=== PATIENT | female | born 1960 | race African-American/Black ===

== ENCOUNTER 2017-07-26 13:43 | Emergency (ER) | payer OTHER ==
--- NOTE | 2017-07-26 14:40 | ER Document Report ---
ED General - General Chief Complaint: Nose Bleed Stated Complaint: NOSE BLEED Time Seen by Provider: 07/26/17 14:31 Notes: 57-year-old female here with complaints of nosebleed that started prior to arrival. She blew her nose and then it started bleeding for approximately 1 hour on both sides. She has a long-standing history of nosebleeds once monthly for many years. She has never gone to see an ENT physician about this. After the 1 hour bleeding today, she started to have some slight lightheadedness. She denies any chest pain shortness of breath. TRAVEL OUTSIDE OF THE [place] IN LAST 30 DAYS: No - Related Data Allergies/Adverse Reactions: No Known Allergies Allergy (Verified 07/26/17 13:45) Past Medical History - Social History Smoking Status: Former Smoker Chew tobacco use (# tins/day): No Frequency of alcohol use: Occasional Drug Abuse: None Family History: Reviewed & Not Pertinent Patient has suicidal ideation: No Patient has homicidal ideation: No - Past Medical History Cardiac Medical History: Reports: Hx Hypertension - hx of was DC'd off of meds Renal/ Medical History: Denies: Hx Peritoneal Dialysis Past Surgical History: Reports: Hx Hysterectomy Review of Systems - Review of Systems Notes: See history of present illness for pertinent positive review of systems; otherwise all review of systems have been reviewed and are negative Physical Exam - Vital signs Vitals: Temp Pulse Resp BP Pulse Ox 98.5 F 93 16 192/82 H 99 07/26/17 13:58 07/26/17 13:58 07/26/17 13:58 07/26/17 13:58 07/26/17 13:58 - Notes Notes: PHYSICAL EXAMINATION: GENERAL: Well-appearing and in no acute distress. HEAD: Atraumatic, normocephalic. EYES: Pupils equal round and reactive to light, extraocular movements intact, sclera anicteric, conjunctiva are normal. ENT: nares patent however with mildly inflamed bilateral nasal mucosa, no active bleeding, oropharynx clear without exudates. Moist mucous membranes. NECK: Normal range of motion, supple without lymphadenopathy LUNGS: CTAB and equal. No wheezes rales or rhonchi. HEART: Regular rate and rhythm without murmurs ABDOMEN: Soft, no tenderness. No guarding, no rebound EXTREMITIES: Normal range of motion, no pitting edema. No cyanosis. NEUROLOGICAL: Cranial nerves grossly intact. Normal sensory/motor exams. PSYCH: Normal mood, normal affect. SKIN: Warm, Dry, normal turgor, no rashes or lesions noted Course - Re-evaluation Re-evalutation: 07/26/17 14:39 MEDICAL DECISION MAKING: Concern for acute blood loss anemia causing lightheadedness Will check her blood counts and go from there Patient understands and agrees to the plan of care 07/26/17 15:07 Normal blood counts, discussed with patient use of pressure to stop bleeding Also discussed humidifier usage and follow-up PCP - Vital Signs Vital signs: Temp Pulse Resp BP Pulse Ox 98.5 F 93 16 147/86 H 99 07/26/17 13:58 07/26/17 13:58 07/26/17 13:58 07/26/17 14:01 07/26/17 13:58 - Laboratory Result Diagrams: 07/26/17 14:50 Laboratory results interpreted by me: 07/26/17 14:50 RDW 14.3 H Discharge - Discharge Clinical Impression: Epistaxis, recurrent Condition: Good Disposition: HOME, SELF-CARE Additional Instructions: Your blood counts were normal. Use constant pressure to stop nosebleeds. You were seen in the emergency department at [facility]. If you were given any sedating medications, be sure not to operate heavy machinery (example - driving) and be sure you are not too sedated to walk appropriately. Please followup with your primary physician in the next few days for further management /evaluation. Please return to the emergency department for worsening of symptoms or any symptom that you deem to be concerning or life-threatening. Thank you for allowing us to be part of your care.
[2017-07-26 15:00] LABS: ABSOLUTE LYMPHOCYTES (AUTO) 2.2 10^3/uL (0.5-4.7); ABSOLUTE MONOCYTES (AUTO) 0.5 10^3/uL (0.1-1.4); ABSOLUTE NEUT (AUTO) 5.4 10^3/uL (1.7-8.2); BASOPHILS % (AUTO) 0.2 % (0-2); EOSINOPHILS % (AUTO) 0.5 % (0-6); HEMATOCRIT 38.6 % (36.0-47.0); HEMOGLOBIN 12.6 g/dL (12.0-15.5); LYMPHOCYTES % (AUTO) 27.1 % (13-45); MEAN CORPUSCULAR HEMOGLOBIN 29.3 pg (27.0-33.4); MEAN CORPUSCULAR HGB CONC 32.7 g/dL (32.0-36.0); MEAN CORPUSCULAR VOLUME 90 fl (80-97); MONOCYTES % (AUTO) 6.5 % (3-13); PLATELET COUNT 200 10^3/uL (150-450); RED CELL DISTRIBUTION WIDTH 14.3 % (11.5-14.0); SEGMENTED NEUTROPHILS % (AUTO) 65.7 % (42-78); TOTAL CELLS COUNTED % (AUTO) 100 %; WHITE BLOOD COUNT 8.2 10^3/uL (4.0-10.5)
[2017-07-26 15:16] VITALS: BP 151/92
== END 2017-07-26 15:16 | disposition home or self-care (01) ==
LOC: ER 13:43
DX: R04.0 Epistaxis (principal); Z87.891 Personal history of nicotine dependence
CPT/HCPCS: 36415; 85025; 99283

== ENCOUNTER 2017-08-14 18:20 | Emergency (ER) | payer OTHER ==
[2017-08-14] MEDS ORDERED: CLONIDINE HCL 0.2 MG TABLET PO ONE (19:01)
--- NOTE | 2017-08-14 19:05 | ER Document Report ---
ED Medical Screen (RME) - General Chief Complaint: Blood Pressure Problem Stated Complaint: BLOOD PRESSURE ISSUE Time Seen by Provider: 08/14/17 19:00 Mode of Arrival: Ambulatory Information source: Patient TRAVEL OUTSIDE OF THE [place] IN LAST 30 DAYS: No - HPI Patient complains to provider of: elevated BP Onset: This afternoon - pt with h/o htn many years ago and BP{ checked again today and was told it was elevated. No other c/o - Related Data Allergies/Adverse Reactions: No Known Allergies Allergy (Verified 08/14/17 18:22) Past Medical History - Past Medical History Cardiac Medical History: Reports: Hx Hypertension - hx of was DC'd off of meds Renal/ Medical History: Denies: Hx Peritoneal Dialysis Past Surgical History: Reports: Hx Hysterectomy Physical Exam - Vital signs Vitals: Temp Pulse Resp BP 98.4 F 76 16 226/82 H 08/14/17 18:26 08/14/17 18:26 08/14/17 18:26 08/14/17 18:26 Course - Vital Signs Vital signs: Temp Pulse Resp BP Pulse Ox 98.4 F 76 16 226/82 H 08/14/17 18:26 08/14/17 18:26 08/14/17 18:26 08/14/17 18:26
[2017-08-14 19:34] LABS: ABSOLUTE BASOPHILS # (AUTO) 0.1 10^3/uL (0.0-0.2); ABSOLUTE MONOCYTES (AUTO) 0.4 10^3/uL (0.1-1.4); ABSOLUTE NEUT (AUTO) 3.7 10^3/uL (1.7-8.2); BASOPHILS % (AUTO) 0.8 % (0-2); EOSINOPHILS % (AUTO) 0.5 % (0-6); HEMATOCRIT 37.1 % (36.0-47.0); HEMOGLOBIN 12.5 g/dL (12.0-15.5); LYMPHOCYTES % (AUTO) 32.7 % (13-45); MEAN CORPUSCULAR HEMOGLOBIN 30.4 pg (27.0-33.4); MEAN CORPUSCULAR HGB CONC 33.7 g/dL (32.0-36.0); MEAN CORPUSCULAR VOLUME 90 fl (80-97); MONOCYTES % (AUTO) 7.2 % (3-13); PLATELET COUNT 175 10^3/uL (150-450); RED BLOOD COUNT 4.11 10^6/uL (3.72-5.28); RED CELL DISTRIBUTION WIDTH 14.7 % (11.5-14.0); SEGMENTED NEUTROPHILS % (AUTO) 58.8 % (42-78); TOTAL CELLS COUNTED % (AUTO) 100 %; WHITE BLOOD COUNT 6.2 10^3/uL (4.0-10.5)
[2017-08-14 19:47] LABS: ALANINE AMINOTRANSFERASE 28 U/L (9-52); ALBUMIN 4.6 g/dL (3.5-5.0); ALKALINE PHOSPHATASE 82 U/L (38-126); ANION GAP 11 (5-19); ASPARTATE AMINO TRANSFERASE 27 U/L (14-36); BILIRUBIN,DIRECT 0.4 mg/dL (0.0-0.4); BILIRUBIN,TOTAL 0.4 mg/dL (0.2-1.3); BLOOD UREA NITROGEN 10 mg/dL (7-20); CALCIUM 10.7 mg/dL (8.4-10.2); CARBON DIOXIDE 27 mmol/L (22-30); CHLORIDE 105 mmol/L (98-107); CREATINE KINASE 86 U/L (30-135); GLUCOSE 103 mg/dL (75-110); POTASSIUM 3.7 mmol/L (3.6-5.0); SODIUM 142.6 mmol/L (137-145); TOTAL PROTEIN 8.2 g/dL (6.3-8.2)
[2017-08-14 19:52] LABS: APPEARANCE,URINE CLEAR; BILIRUBIN,URINE NEGATIVE (NEGATIVE); COLOR,URINE STRAW; GLUCOSE, URINE NEGATIVE (NEGATIVE); KETONES,URINE NEGATIVE (NEGATIVE); LEUKOCYTE ESTERASE,URINE NEGATIVE (NEGATIVE); NITRITE,URINE NEGATIVE (NEGATIVE); PROTEIN,URINE NEGATIVE (NEGATIVE); URINE SPECIFIC GRAVITY 1.004; UROBILINOGEN,URINE NEGATIVE mg/dL (<2.0)
[2017-08-14 19:59] LABS: CREATINE KINASE MB 0.26 ng/mL (<4.55); TROPONIN I < 0.012 ng/mL
--- NOTE | 2017-08-14 20:47 | ER Document Report ---
ED General - General Mode of Arrival: Ambulatory Information source: Patient TRAVEL OUTSIDE OF THE [place] IN LAST 30 DAYS: No <JOSEPH ALEGRE - Last Filed: 08/15/17 00:01> <RICARDO KAUFMAN - Last Filed: 08/15/17 03:35> - General Chief Complaint: Blood Pressure Problem Stated Complaint: BLOOD PRESSURE ISSUE Time Seen by Provider: 08/14/17 19:00 Notes: Patient is a 57 year old female who was sent to the emergency department for high blood pressure and left arm tingling. Patient states that she had high blood pressure years ago and prescribed medications that was taken off of it after 3 months. Patient then states that her left arm tingling only lasted for a second. Patient denies any tingling arms, cough, or cold at that site. (JOSEPH ALEGRE) - Related Data Allergies/Adverse Reactions: No Known Allergies Allergy (Verified 08/14/17 18:22) Past Medical History - General Information source: Patient - Social History Smoking Status: Former Smoker Frequency of alcohol use: beer every night Drug Abuse: None Family History: Reviewed & Not Pertinent Patient has suicidal ideation: No Patient has homicidal ideation: No - Past Medical History Cardiac Medical History: Reports: Hx Hypertension - hx of was DC'd off of meds Renal/ Medical History: Denies: Hx Peritoneal Dialysis Past Surgical History: Reports: Hx Hysterectomy <JOSEPH ALEGRE - Last Filed: 08/15/17 00:01> Review of Systems - Review of Systems Constitutional: See HPI EENT: No symptoms reported Cardiovascular: No symptoms reported Respiratory: No symptoms reported Gastrointestinal: No symptoms reported Genitourinary: No symptoms reported Female Genitourinary: No symptoms reported Musculoskeletal: No symptoms reported Skin: No symptoms reported Hematologic/Lymphatic: No symptoms reported Neurological/Psychological: No symptoms reported -: Yes All other systems reviewed and negative <JOSEPH ALEGRE - Last Filed: 08/15/17 00:01> Physical Exam <JOSEPH ALEGRE - Last Filed: 08/15/17 00:01> <RICARDO KAUFMAN - Last Filed: 08/15/17 03:35> - Vital signs Vitals: Temp Pulse Resp BP 98.4 F 76 16 226/82 H 08/14/17 18:26 08/14/17 18:26 08/14/17 18:26 08/14/17 18:26 - Notes Notes: GENERAL: Alert, interacts well. No acute distress. Hypertensive. HEAD: Normocephalic, atraumatic. EYES: Appear normal. Pupils equal, round, and reactive to light. ENT: Moist mucus membranes, tongue midline. NECK: Full range of motion. Supple. Trachea midline. LUNGS: Clear to auscultation bilaterally, no wheezes, rales, or rhonchi. No respiratory distress. HEART: Regular rate and rhythm. No murmurs, gallops, or rubs. ABDOMEN: Soft, non-tender. Non-distended. Normal bowel sounds. EXTREMITIES: Moves all 4 extremities spontaneously. Normal strength. No edema. NEUROLOGICAL: Alert and oriented x3. Normal speech. No focal neurological deficits. PSYCH: Normal affect, normal mood. SKIN: Warm, dry, normal turgor. No rashes or lesions noted. (JOSEPH ALEGRE) Course - Laboratory Result Diagrams: 08/14/17 19:22 08/14/17 19:22 <JOSEPH ALEGRE - Last Filed: 08/15/17 00:01> - Laboratory Result Diagrams: 08/14/17 19:22 08/14/17 19:22 - Diagnostic Test Radiology reviewed: Reports reviewed <RICARDO KAUFMAN - Last Filed: 08/15/17 03:35> - Re-evaluation Re-evalutation: 08/14/17 23:46 Discussed results with patient and advised to follow up with Dr. Campos for primary care and cardiology. Patient agrees to this plan. Advised patient to return to the emergency department for any new or worsening symptoms. 08/15/17 00:01 (JOSEPH ALEGRE) Patient is a 57-year-old female who comes in with severe hypertension. Patient states that she had some paresthesias in her left arm yesterday. Denies any complaints today. Initial pressures to 200s over 100s. Patient was referred from urgent care. She has not been taking any medications for anything, specifically high blood pressure. Workup here is not showing anything concerning on blood work or imaging. Patient with no findings on CT or renal Doppler. Patient was given lisinopril and that has brought her blood pressure down nicely. Patient will be given a prescription for hydrochlorothiazide and lisinopril and is to follow-up with a primary care doctor. She is agreeable with this plan. Return immediately if any worsening or concerning symptoms. Stable for discharge. (RICARDO KAUFMAN) - Vital Signs Vital signs: Temp Pulse Resp BP Pulse Ox 98.4 F 76 20 174/77 H 100 08/14/17 18:26 08/14/17 18:26 08/14/17 23:24 08/14/17 23:24 08/14/17 23:24 - Laboratory Laboratory results interpreted by me: 08/14/17 08/14/17 19:22 19:22 RDW 14.7 H Calcium 10.7 H Discharge <JOSEPH ALEGRE - Last Filed: 08/15/17 00:01> <RICARDO KAUFMAN - Last Filed: 08/15/17 03:35> - Discharge Clinical Impression: Uncontrolled hypertension Condition: Stable Disposition: HOME, SELF-CARE Instructions: High Blood Pressure, Requiring Treatment ([facility]) Prescriptions: Lisinopril 10 mg PO QHS #30 tablet Hydrochlorothiazide [Hydrodiuril 12.5 mg Capsule] 12.5 mg PO QAM #30 capsule Forms: Return to Work Referrals: DANIELITO CAMPOS MD [ACTIVE STAFF] - Follow up in 3-5 days Scribe Attestation: 08/15/17 03:35 I personally performed the services described in the documentation, reviewed and edited the documentation which was dictated to the scribe in my presence, and it accurately records my words and actions. (RICARDO KAUFMAN) Scribe Documentation - Scribe Written by Trace[employer]:: Do Simon, 08/14/2017 22:00 acting as scribe for :: Marlena <JOSEPH ALEGRE - Last Filed: 08/15/17 00:01>
[2017-08-14] MEDS ORDERED: LISINOPRIL 10 MG TABLET PO ONE (21:36)
--- NOTE | 2017-08-14 22:52 | RADIOLOGY REPORT (SQ) ---
EXAM DESCRIPTION: U/S RETROPERITON (RENAL/AORTA); U/S LTD DUPLEX ART/KELLIE FLOW COMPLETED DATE/TIME: 08/14/2017 10:35 pm REASON FOR STUDY: HTN, evaluate renal arteries; HTN, EVALUATE RENAL ARTERIES COMPARISON: None. TECHNIQUE: Grayscale images acquired. Selected color Doppler, velocities and spectral images recorde d. LIMITATIONS: None. FINDINGS: RIGHT KIDNEY: RENAL ARTERY VELOCITIES: 117.7 cm/sec. Segmental artery velocity 102.6 cm/sec. RENAL VEIN: Patent. VELOCITY RATIO: 0.96. Normal waveforms. KIDNEY: Measures 10 cm in length. No hydronephrosis. LEFT KIDNEY: RENAL ARTERY VELOCITIES: 109.8 cm/sec. Segmental artery velocity 74.0 cm/sec. RENAL VEIN: Patent. VELOCITY RATIO: 0.90. Normal waveforms. KIDNEY: Measures 11 cm in length. No hydronephrosis. BLADDER: Distended. IMPRESSION: No hydronephrosis. No Doppler evidence of hemodynamically significant renal artery sten osis. COMMENT: NORMAL RENAL ARTERY/AORTA VELOCITY RATIO IS LESS THAN OR EQUAL TO 3.5. TECHNICAL DOCUMENTATION: JOB ID: [id number] [id number] 2010 [employer]- All Rights Reserved
--- NOTE | 2017-08-14 22:52 | RADIOLOGY REPORT (SQ) ---
EXAM DESCRIPTION: U/S RETROPERITON (RENAL/AORTA); U/S LTD DUPLEX ART/KELLIE FLOW COMPLETED DATE/TIME: 08/14/2017 10:35 pm REASON FOR STUDY: HTN, evaluate renal arteries; HTN, EVALUATE RENAL ARTERIES COMPARISON: None. TECHNIQUE: Grayscale images acquired. Selected color Doppler, velocities and spectral images recorde d. LIMITATIONS: None. FINDINGS: RIGHT KIDNEY: RENAL ARTERY VELOCITIES: 117.7 cm/sec. Segmental artery velocity 102.6 cm/sec. RENAL VEIN: Patent. VELOCITY RATIO: 0.96. Normal waveforms. KIDNEY: Measures 10 cm in length. No hydronephrosis. LEFT KIDNEY: RENAL ARTERY VELOCITIES: 109.8 cm/sec. Segmental artery velocity 74.0 cm/sec. RENAL VEIN: Patent. VELOCITY RATIO: 0.90. Normal waveforms. KIDNEY: Measures 11 cm in length. No hydronephrosis. BLADDER: Distended. IMPRESSION: No hydronephrosis. No Doppler evidence of hemodynamically significant renal artery sten osis. COMMENT: NORMAL RENAL ARTERY/AORTA VELOCITY RATIO IS LESS THAN OR EQUAL TO 3.5. TECHNICAL DOCUMENTATION: JOB ID: [id number] [place]-[id number] 2010 [employer]- All Rights Reserved
--- NOTE | 2017-08-14 23:02 | RADIOLOGY REPORT (SQ) ---
EXAM DESCRIPTION: CT HEAD WITHOUT COMPLETED DATE/TIME: 08/14/2017 10:52 pm REASON FOR STUDY: HTN, paresthesias L, resolved COMPARISON: None. TECHNIQUE: Axial images acquired through the brain without intravenous contrast. Images reviewed wi th bone, brain and subdural windows. Images stored on PACS. All CT scanners at this facility use dose modulation, iterative reconstruction, and/or weight based d osing when appropriate to reduce radiation dose to as low as reasonably achievable (ALARA). [facility]: Dose Right [facility]: CareDose [facility]: Dose Right [facility]: Teradose 4D [facility]: Estimize RADIATION DOSE: mGy. LIMITATIONS: None. FINDINGS: VENTRICLES: Normal size and contour. CEREBRUM: No mass effect. No hemorrhage. No midline shift. Normal mars/white matter differentiatio n. No evidence for acute territorial infarction. CEREBELLUM: No mass effect. No hemorrhage. No alteration of density. No evidence for acute infarct ion. EXTRAAXIAL SPACES: No fluid collections. ORBITS AND GLOBE: Symmetrical contour of the globes. CALVARIUM: No depressed skull fracture. PARANASAL SINUSES: No air-fluid level. SOFT TISSUES: No hematoma. IMPRESSION: No acute intracranial hemorrhage or acute territorial infarct. EVIDENCE OF ACUTE STROKE: NO. COMMENT: Quality ID # [id number]: Final reports with documentation of one or more dose reduction techniques (e.g., Automated exposure control, adjustment of the mA and/or kV according to patient size, use of iterative reconstruction technique) TECHNICAL DOCUMENTATION: JOB ID: [id number] [place]-[id number] 2010 [employer]- All Rights Reserved
[2017-08-14 23:31] VITALS: BP 174/77
--- NOTE | 2017-08-15 07:25 | EKG REPORT ---
SEVERITY:- NORMAL ECG - SINUS RHYTHM : Confirmed by: Anders Chavez MD 15-Aug-2017 07:24:49
== END 2017-08-14 23:30 | disposition home or self-care (01) ==
LOC: ER 18:20
DX: I10 Essential (primary) hypertension (principal); R20.2 Paresthesia of skin; Z87.891 Personal history of nicotine dependence
CPT/HCPCS: 36415; 70450; 76770; 80053; 81001; 82550; 82553; 84484; 85025; 93005; 93010; 93976; 99284